=== PATIENT | female | born 2000 | race Caucasian/White ===

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

== ENCOUNTER 2023-04-02 16:13 | Outpatient (REF) | payer BC, SELFPAY ==
--- NOTE | 2023-04-02 15:15 | PAPFT_PTH ---
PATIENT: Jin Beth LOC: [facility] U#:[id number] AGE/SX: 23/F ROOM: RE04/02/[address]: Martha Finney : 2000 BED: DIS: 04/02/2023 SPEC #: [id number] RECD: 04/03/23 13:12 STATUS: VU YARBROUGH #: [id number] LEONILA: 04/02/23 15:[address]: Martha Finney DEPT: [facility] Cytology RECD BY: Sarah Cordova ENTERED: 04/03/23 13:13 SP TYPE: PAPFT EDMUNDO DR: Gurmeet Grimes Timothy Tissues: 1 - CX/ENDOCX FOR PAP SMEARS Procedures: PAP THIN PREP/[facility] Screening Comments: [id number]
== END 2023-04-02 16:14 | disposition home or self-care (01) ==
LOC: NCHCN 16:13
PROVIDERS: PCP Internal Medicine; Visit Provider Nurse Practitioner Family
DX: Z12.4 Encounter for screening for malignant neoplasm of cervix (principal); R87.612 Low grade squamous intraepithelial lesion on cytologic smear of cervix (LGSIL); Z00.00 Encounter for general adult medical examination without abnormal findings; Z01.419 Encounter for gynecological examination (general) (routine) without abnormal findings
CPT/HCPCS: 88142

== ENCOUNTER 2024-04-15 12:33 | Outpatient (REF) | payer BC, SELFPAY ==
--- NOTE | 2024-04-15 13:45 | PAPFT_PTH ---
PATIENT: Jin Beth LOC: [facility]#:[id number] AGE/SX: 24/F ROOM: RE04/15/[address]: Martha Finney : 2000 BED: DIS: 04/15/2024 SPEC #: [id number] RECD: 04/16/24 12:54 STATUS: VU REDarrick #: [id number] LEONILA: 04/15/24 13:[address]: Martha Finney DEPT: [facility] Cytology RECD BY: Sarah Cordova Tissues: 1 - CX/ENDOCX FOR PAP SMEARS Procedures: PAP THIN PREP/[facility] Screening Comments: [id number]
== END 2024-04-15 12:34 | disposition home or self-care (01) ==
LOC: NCHCN 12:33
PROVIDERS: PCP Nurse Practitioner Family; Visit Provider Nurse Practitioner Family
DX: Z12.4 Encounter for screening for malignant neoplasm of cervix (principal)
CPT/HCPCS: 88142

== ENCOUNTER 2025-05-12 08:42 | Outpatient (REF) | payer BC, SELFPAY ==
--- NOTE | 2025-05-12 07:45 | PAPFT_PTH ---
PATIENT: Jin Beth LOC: [facility] U#:[id number] AGE/SX: 25/F ROOM: RE05/12/[address]: Martha Finney : 2000 BED: DIS: 05/12/2025 SPEC #: [id number] RECD: 05/12/25 17:59 STATUS: VU YARBROUGH #: [id number] LEONILA: 05/12/25 07:[address]: Martha Finney DEPT: [facility] Cytology RECD BY: Sarah Cordova Tissues: 1 - CX/ENDOCX FOR PAP SMEARS Procedures: PAP THIN PREP/[facility] Screening Comments: [id number]
== END 2025-05-12 08:43 | disposition home or self-care (01) ==
LOC: NCHCN 08:42
PROVIDERS: PCP Nurse Practitioner Family; Visit Provider Nurse Practitioner Family
DX: Z12.4 Encounter for screening for malignant neoplasm of cervix (principal)
CPT/HCPCS: 88142